=== PATIENT | male | born 1950 | race Caucasian/White ===

== ENCOUNTER 2016-09-29 06:14 | Inpatient (IN) | payer MEDICARE, MEDICAID ==
[2016-09-29 06:57] LABS: URINE APPEARANCE CLOUDY; URINE BILIRUBIN MODERATE (NEG); URINE BLOOD LARGE (NEG); URINE COLOR DARK YELLOW; URINE GLUCOSE (UA) NEGATIVE (NEG); URINE KETONE NEGATIVE (NEG); URINE LEUKOCYTE ESTERASE POSITIVE (NEG); URINE NITRITE POSITIVE (NEG); URINE PROTEIN MODERATE (NEG); URINE SPECIFIC GRAVITY 1.015 (1.003-1.030)
[2016-09-29 07:08] LABS: URINE BACTERIA 3+; URINE EPITHELIAL CELLS 0-3 /[HPF] (0-10); URINE MUCUS 1+
[2016-09-29 07:16] LABS: HCT-HEMATOCRIT 43.6 % (36.0-53.5); HGB-HEMOGLOBIN 14.1 gm/dl (13.5-17.0); IMMATURE GRANULOCYTES ABSOLUTE 0.07 tho/cmm (0-0.03); IMMATURE GRANULOCYTES PERCENT 0.3 % (0-0.3); LYMPH % 2.9 % (20-45); LYMPH ABSOLUTE COUNT 0.6 tho/cmm (0.8-4.5); MCH (MEAN CORPUSCULAR HGB) 27.9 pg (28.0-32.0); MCHC MEAN CORPUSCULAR HGB CONC 32.3 % (32.0-36.0); MCV (MEAN CELL VOLUME) 86.2 fl (82.0-96.0); MONO % 8.9 % (0-12); MONOCYTE ABSOLUTE COUNT 1.9 tho/cmm (0.0-1.2); NEUTROPHIL ABSOLUTE COUNT 18.9 tho/cmm (1.6-8.0); NEUTROPHIL-AUTOMATED 18.9 tho/cmm (1.6-8.0); NEUTROPHILS % 87.9 % (40-80); PLATELET COUNT 209 tho/cmm (150-450); RED BLOOD COUNT 5.06 mil/cmm (4.40-5.70); RED CELL DISTRIBUTION WIDTH 14.3 % (12.4-16.4); WHITE BLOOD COUNT 21.5 tho/cmm (4.0-10.0)
[2016-09-29 07:23] LABS: ALB/GLOB RATIO 0.8 (0.8-2.0); ALKALINE PHOSPHATASE 80 U/L (33-138); ALT/SGPT 32 U/L (12-78); ANION GAP 15 mmol/L (0-20); AST/SGOT 70 U/L (10-40); BILIRUBIN,TOTAL 0.6 mg/dl (0.0-1.5); BLOOD UREA NITROGEN 46 mg/dl (6-24); CALCIUM 9.7 mg/dl (8.5-10.5); CARBON DIOXIDE-VENOUS 26 mmol/L (22-32); CHLORIDE 101 mmol/l (96-110); CREATININE 2.46 mg/dl (0.60-1.30); GLUCOSE 160 mg/dL (70-110); SODIUM 135 mmol/L (135-145); eGFR VALUE FOR BLACK 31 mL/Min
[2016-09-29 07:27] LABS: POTASSIUM 6.8 mmol/L (3.7-5.1)
[2016-09-29] MEDS ORDERED: ATORVASTATIN CA10 M1 PO (08:01)
[2016-09-29] MEDS ORDERED: BACLOFEN20 M1 PO (08:01)
[2016-09-29] MEDS ORDERED: ASPIRIN81 M1 PO (08:01)
[2016-09-29] MEDS ORDERED: VENELEX OINTMEN60 GM TP (08:02)
[2016-09-29] MEDS ORDERED: PLAVIX75 M1 PO (08:02)
[2016-09-29] MEDS ORDERED: NEURONTIN800 M1 PO (08:02)
[2016-09-29] MEDS ORDERED: IRON325 M3 PO (08:02)
[2016-09-29] MEDS ORDERED: FOLIC ACID1 M1 PO (08:02)
[2016-09-29] MEDS ORDERED: REMERON15 M1 PO (08:03)
[2016-09-29] MEDS ORDERED: RANEXA500 M1 PO (08:04)
[2016-09-29] MEDS ORDERED: TERAZOSIN HCL2 M1 PO (08:04)
[2016-09-29] MEDS ORDERED: POTASSIUM CHLO20 ME4 PO (08:04)
[2016-09-29] MEDS ORDERED: RISPERDAL0.5 M2 PO (08:04)
[2016-09-29] MEDS ORDERED: FLOMAX0.4 M1 PO (08:05)
[2016-09-29] MEDS ORDERED: MI ACID PO (08:05)
[2016-09-29] MEDS ORDERED: AMBIEN5 M1 PO (08:05)
[2016-09-29 08:06] LABS: PROCALCITONIN 0.34 ng/ml (0.05-0.09)
[2016-09-29] MEDS ORDERED: OXYCODONE HCL5 M1 PO (08:06)
[2016-09-29] MEDS ORDERED: LOVENOX40 MG/0.1 SC (08:07)
[2016-09-29] MEDS ORDERED: HYDROCORTISONE5 M1 PO (10:15)
[2016-09-29] MEDS ORDERED: BRINTELLIX20 M1 PO (10:17)
[2016-09-29] MEDS ORDERED: CERTAVITE-ANTI1 EACH PO (10:17)
[2016-09-29] MEDS ORDERED: MINIPRESS2 M1 PO (10:17)
[2016-09-29] MEDS ORDERED: MILK OF MAGNESIA PO (10:18)
[2016-09-29] MEDS ORDERED: BISAC-EVAC10 MG PR (10:19)
[2016-09-29] MEDS ORDERED: FLEET ENEMA133 ML PR (10:19)
[2016-09-29] MEDS ORDERED: MAALOX MAXIMUM355 M1 PO (10:20)
[2016-09-29] MEDS ORDERED: HYDROXYZINE HCL25 M1 PO (10:21)
[2016-09-29] MEDS ORDERED: ANTI-DIARRHEAL2 M2 PO (10:21)
[2016-09-29] MEDS ORDERED: DOCUSATE SODIU100 M2 PO (10:22)
[2016-09-29] MEDS ORDERED: PYRIDIUM200 M2 PO (10:23)
[2016-09-29] MEDS ORDERED: LIDOCAINE HCL5 M1 TP (10:23)
[2016-09-29] MEDS ORDERED: ARTIFICIAL TEAR1512 OP (10:24)
[2016-09-29] MEDS ORDERED: RESTORIL15 M1 PO (10:24)
[2016-09-29] MEDS ORDERED: OXYCODONE HCL10 M2 PO ×2 (10:25)
[2016-09-29 14:05] LABS: ABG CO2 ARTERIAL 25 mmol/L (21-27); ARTERIAL BLD GAS O2 SATURATION 98 % (95-98); ARTERIAL BLOOD GAS PCO2 37 mmHg (32-45); ARTERIAL PO2 116 mmHg (70-100); BICARBONATE 24 mmol/L (21-28); BLOOD GAS BASE EXCESS 1 mM/L (-/+3); PH 7.43 Units (7.35-7.45)
[2016-09-29 16:22] LABS: INR 1.3 INR (0.9-1.1)
[2016-09-29 16:39] LABS: C-REACTIVE PROTEIN 13.5 mg/dl (0-0.9)
[2016-09-30 03:58] LABS: BASO % 0.1 % (0-2); HCT-HEMATOCRIT 32.1 % (36.0-53.5); HGB-HEMOGLOBIN 10.4 gm/dl (13.5-17.0); IMMATURE GRANULOCYTES ABSOLUTE 0.06 tho/cmm (0-0.03); IMMATURE GRANULOCYTES PERCENT 0.3 % (0-0.3); LYMPH % 2.9 % (20-45); LYMPH ABSOLUTE COUNT 0.5 tho/cmm (0.8-4.5); MCH (MEAN CORPUSCULAR HGB) 27.4 pg (28.0-32.0); MCHC MEAN CORPUSCULAR HGB CONC 32.4 % (32.0-36.0); MCV (MEAN CELL VOLUME) 84.7 fl (82.0-96.0); MEAN PLATELET VOLUME 10.4 cmc (9.4-12.4); MONO % 5.5 % (0-12); NEUTROPHIL ABSOLUTE COUNT 15.8 tho/cmm (1.6-8.0); NEUTROPHIL-AUTOMATED 15.8 tho/cmm (1.6-8.0); NEUTROPHILS % 91.2 % (40-80); PLATELET COUNT 146 tho/cmm (150-450); RED BLOOD COUNT 3.79 mil/cmm (4.40-5.70); RED CELL DISTRIBUTION WIDTH 14.5 % (12.4-16.4); WHITE BLOOD COUNT 17.3 tho/cmm (4.0-10.0)
[2016-09-30 04:15] LABS: ALBUMIN 2.7 g/dl (3.5-5.0); ALKALINE PHOSPHATASE 59 U/L (33-138); ALT/SGPT 46 U/L (12-78); BILIRUBIN,TOTAL 0.6 mg/dl (0.0-1.5); BLOOD UREA NITROGEN 23 mg/dl (6-24); CALCIUM 8.3 mg/dl (8.5-10.5); CARBON DIOXIDE-VENOUS 24 mmol/L (22-32); CHLORIDE 112 mmol/l (96-110); GLUCOSE 177 mg/dL (70-110); MAGNESIUM 1.6 mg/dl (1.8-2.6); PHOSPHOROUS 2.7 mg/dl (2.5-4.9)
[2016-09-30 04:48] LABS: ALB/GLOB RATIO 0.8 (0.8-2.0); ANION GAP 14 mmol/L (0-20); AST/SGOT 126 U/L (10-40); CREATININE 1.07 mg/dl (0.60-1.30); POTASSIUM 3.6 mmol/L (3.7-5.1); SODIUM 146 mmol/L (135-145); eGFR VALUE FOR BLACK 84 mL/Min
[2016-10-01 04:30] LABS: HGB-HEMOGLOBIN 9.3 gm/dl (13.5-17.0); IMMATURE GRANULOCYTES ABSOLUTE 0.02 tho/cmm (0-0.03); IMMATURE GRANULOCYTES PERCENT 0.2 % (0-0.3); LYMPH % 7.4 % (20-45); LYMPH ABSOLUTE COUNT 0.8 tho/cmm (0.8-4.5); MCH (MEAN CORPUSCULAR HGB) 27.4 pg (28.0-32.0); MCHC MEAN CORPUSCULAR HGB CONC 33.2 % (32.0-36.0); MCV (MEAN CELL VOLUME) 82.6 fl (82.0-96.0); MEAN PLATELET VOLUME 10.9 cmc (9.4-12.4); MONO % 3.8 % (0-12); MONOCYTE ABSOLUTE COUNT 0.4 tho/cmm (0.0-1.2); NEUTROPHIL ABSOLUTE COUNT 9.8 tho/cmm (1.6-8.0); NEUTROPHIL-AUTOMATED 9.8 tho/cmm (1.6-8.0); NEUTROPHILS % 88.6 % (40-80); PLATELET COUNT 137 tho/cmm (150-450); RED BLOOD COUNT 3.39 mil/cmm (4.40-5.70); RED CELL DISTRIBUTION WIDTH 14.4 % (12.4-16.4)
[2016-10-01 04:45] LABS: ANION GAP 13 mmol/L (0-20); BLOOD UREA NITROGEN 20 mg/dl (6-24); CALCIUM 7.9 mg/dl (8.5-10.5); CARBON DIOXIDE-VENOUS 24 mmol/L (22-32); CHLORIDE 109 mmol/l (96-110); CREATININE 0.73 mg/dl (0.60-1.30); GLUCOSE 118 mg/dL (70-110); MAGNESIUM 1.9 mg/dl (1.8-2.6); PHOSPHOROUS 1.9 mg/dl (2.5-4.9); SODIUM 143 mmol/L (135-145); eGFR VALUE FOR BLACK >90 mL/Min
[2016-10-01 04:57] LABS: POTASSIUM 2.7 mmol/L (3.7-5.1)
[2016-10-01 06:44] LABS: PROCALCITONIN 0.46 ng/ml (0.05-0.09)
[2016-10-01 12:58] LABS: MAGNESIUM 1.8 mg/dl (1.8-2.6); POTASSIUM 3.1 mmol/L (3.7-5.1)
[2016-10-02 04:39] LABS: HCT-HEMATOCRIT 27.5 % (36.0-53.5); HGB-HEMOGLOBIN 9.2 gm/dl (13.5-17.0); IMMATURE GRANULOCYTES ABSOLUTE 0.03 tho/cmm (0-0.03); IMMATURE GRANULOCYTES PERCENT 0.3 % (0-0.3); LYMPH % 11.4 % (20-45); LYMPH ABSOLUTE COUNT 1.2 tho/cmm (0.8-4.5); MCH (MEAN CORPUSCULAR HGB) 27.3 pg (28.0-32.0); MCHC MEAN CORPUSCULAR HGB CONC 33.5 % (32.0-36.0); MCV (MEAN CELL VOLUME) 81.6 fl (82.0-96.0); MEAN PLATELET VOLUME 10.3 cmc (9.4-12.4); MONO % 6.7 % (0-12); MONOCYTE ABSOLUTE COUNT 0.7 tho/cmm (0.0-1.2); NEUTROPHIL ABSOLUTE COUNT 8.2 tho/cmm (1.6-8.0); NEUTROPHIL-AUTOMATED 8.2 tho/cmm (1.6-8.0); NEUTROPHILS % 81.6 % (40-80); PLATELET COUNT 147 tho/cmm (150-450); RED BLOOD COUNT 3.37 mil/cmm (4.40-5.70); RED CELL DISTRIBUTION WIDTH 14.4 % (12.4-16.4); WHITE BLOOD COUNT 10.1 tho/cmm (4.0-10.0)
[2016-10-02 04:57] LABS: ALB/GLOB RATIO 0.6 (0.8-2.0); ALBUMIN 2.2 g/dl (3.5-5.0); ALKALINE PHOSPHATASE 52 U/L (33-138); ALT/SGPT 60 U/L (12-78); AST/SGOT 98 U/L (10-40); BILIRUBIN,TOTAL 0.4 mg/dl (0.0-1.5); BLOOD UREA NITROGEN 24 mg/dl (6-24); C-REACTIVE PROTEIN 9.5 mg/dl (0-0.9); CALCIUM 7.8 mg/dl (8.5-10.5); CARBON DIOXIDE-VENOUS 22 mmol/L (22-32); CHLORIDE 116 mmol/l (96-110); CREATININE 0.66 mg/dl (0.60-1.30); GLUCOSE 81 mg/dL (70-110); PHOSPHOROUS 2.2 mg/dl (2.5-4.9); SODIUM 147 mmol/L (135-145); eGFR VALUE FOR BLACK >90 mL/Min
[2016-10-02 05:16] LABS: ANION GAP 12 mmol/L (0-20); POTASSIUM 2.6 mmol/L (3.7-5.1)
[2016-10-02 05:19] LABS: CREATINE PHOSPHOKINASE (CPK) 2100 U/L (35-232)
[2016-10-02 05:38] LABS: PROCALCITONIN 0.26 ng/ml (0.05-0.09)
[2016-10-03 03:34] LABS: ANION GAP 10 mmol/L (0-20); BLOOD UREA NITROGEN 17 mg/dl (6-24); C-REACTIVE PROTEIN 5.7 mg/dl (0-0.9); CALCIUM 7.4 mg/dl (8.5-10.5); CARBON DIOXIDE-VENOUS 22 mmol/L (22-32); CHLORIDE 117 mmol/l (96-110); CREATININE 0.68 mg/dl (0.60-1.30); GLUCOSE 103 mg/dL (70-110); POTASSIUM 3.5 mmol/L (3.7-5.1); SODIUM 145 mmol/L (135-145); eGFR VALUE FOR BLACK >90 mL/Min
[2016-10-03 03:54] LABS: BASO % 0.1 % (0-2); HCT-HEMATOCRIT 28.6 % (36.0-53.5); HGB-HEMOGLOBIN 9.5 gm/dl (13.5-17.0); IMMATURE GRANULOCYTES ABSOLUTE 0.07 tho/cmm (0-0.03); IMMATURE GRANULOCYTES PERCENT 0.7 % (0-0.3); LYMPH % 13.6 % (20-45); LYMPH ABSOLUTE COUNT 1.3 tho/cmm (0.8-4.5); MCH (MEAN CORPUSCULAR HGB) 27.4 pg (28.0-32.0); MCHC MEAN CORPUSCULAR HGB CONC 33.2 % (32.0-36.0); MCV (MEAN CELL VOLUME) 82.4 fl (82.0-96.0); MEAN PLATELET VOLUME 9.9 cmc (9.4-12.4); MONO % 7.4 % (0-12); MONOCYTE ABSOLUTE COUNT 0.7 tho/cmm (0.0-1.2); NEUTROPHIL ABSOLUTE COUNT 7.6 tho/cmm (1.6-8.0); NEUTROPHIL-AUTOMATED 7.6 tho/cmm (1.6-8.0); NEUTROPHILS % 78.2 % (40-80); PLATELET COUNT 147 tho/cmm (150-450); RED BLOOD COUNT 3.47 mil/cmm (4.40-5.70); RED CELL DISTRIBUTION WIDTH 14.7 % (12.4-16.4); WHITE BLOOD COUNT 9.7 tho/cmm (4.0-10.0)
[2016-10-03] MEDS ORDERED: PAIN RELIEF325 M1 PO (14:34)
[2016-10-03] MEDS ORDERED: ROCEPHIN IV (14:35)
== END 2016-10-03 15:15 | DRG 871 ==
LOC: EDMED 06:14 → EMR2 09:32 → CCU 13:32 → PCUB 10-01 13:08
PROVIDERS: Emergency Medicine; Internal Medicine Infectious Disease; Internal Medicine Pulmonary Disease; Registered Nurse; ADMIT Family Medicine
PROC: 02HV33Z Insertion of Infusion Device into Superior Vena Cava, Percutaneous Approach (ICD-10-PCS; principal; 2016-09-29)
PROC: B548ZZA Ultrasonography of Superior Vena Cava, Guidance (ICD-10-PCS; 2016-09-29)
DX: A41.89 Other specified sepsis (principal); R65.21 Severe sepsis with septic shock; E43 Unspecified severe protein-calorie malnutrition; G93.41 Metabolic encephalopathy; Z68.1 Body mass index [BMI] 19.9 or less, adult; T83.518A Infection and inflammatory reaction due to other urinary catheter, initial encounter; N39.0 Urinary tract infection, site not specified; N17.9 Acute kidney failure, unspecified; B96.4 Proteus (mirabilis) (morganii) as the cause of diseases classified elsewhere; D63.8 Anemia in other chronic diseases classified elsewhere; E87.5 Hyperkalemia; R73.9 Hyperglycemia, unspecified; I25.10 Atherosclerotic heart disease of native coronary artery without angina pectoris; I73.9 Peripheral vascular disease, unspecified; E83.39 Other disorders of phosphorus metabolism; R33.9 Retention of urine, unspecified; B19.20 Unspecified viral hepatitis C without hepatic coma; Z66 Do not resuscitate; Z91.19 Patient's noncompliance with other medical treatment and regimen; Z95.0 Presence of cardiac pacemaker; Z95.1 Presence of aortocoronary bypass graft; Z79.02 Long term (current) use of antithrombotics/antiplatelets; Z79.82 Long term (current) use of aspirin; Z79.899 Other long term (current) drug therapy; Z88.0 Allergy status to penicillin; Z88.8 Allergy status to other drugs, medicaments and biological substances; Z88.6 Allergy status to analgesic agent
CPT/HCPCS: C1751; J0610; J0692; J0696; J1650; J1720; J1815; J1956; J2310; J3370; J3475; J3480; J7030; J7040; J7050; J7512; P9045